=== PATIENT | female | born 1990 | race Two or more races ===

== ENCOUNTER → 2020-02-05 | Outpatient (CLI) | payer OTHER ==
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
== END ==
LOC: RAD 10:33
PROVIDERS: ATTEND Orthopaedic Surgery
DX: S52.571A Other intraarticular fracture of lower end of right radius, initial encounter for closed fracture (principal); X58.XXXA Exposure to other specified factors, initial encounter

== ENCOUNTER 2020-02-10 09:50 | Day surgery (SDC) | payer OTHER ==
[~2020-02-10 09:50] MED LIST: CEFAZOLIN 2 GM/D5W RTU 2 GM/50 ML RTUPB IV ONE; CEFAZOLIN 2 GM/D5W RTU 2 GM/50 ML RTUPB IV PRN
[2020-02-10 10:25] LABS: HEMOGLOBIN 13.3 g/dL (12.0-15.5); MEAN CORPUSCULAR HEMOGLOBIN 31.6 pg (27.0-33.4); MEAN CORPUSCULAR HGB CONC 35.1 g/dL (32.0-36.0); MEAN CORPUSCULAR VOLUME 90 fl (80-97); PLATELET COUNT 333 10^3/uL (150-450); RED BLOOD COUNT 4.22 10^6/uL (3.72-5.28); RED CELL DISTRIBUTION WIDTH 13.1 % (11.5-14.0); WHITE BLOOD COUNT 5.4 10^3/uL (4.0-10.5)
[2020-02-10] MEDS ORDERED: FENTANYL CITRATE INJ/PF 100 MCG/2 ML AMPUL ONE (10:58)
[2020-02-10] MEDS ORDERED: MIDAZOLAM 2 MG/2 ML INJ ONE (10:58)
[2020-02-10] MEDS ORDERED: ROPIVACAINE HCL 0.5% INJ/PF (5 MG/1 ML) 30 ML SDV ONE (10:59)
[2020-02-10] MEDS ORDERED: KETOROLAC TROMETHAMINE 60 MG/2 ML SDV ONE (11:43)
[2020-02-10] MEDS ORDERED: ONDANSETRON HCL INJ/PF 4 MG/2 ML SDV ONE (11:43)
[2020-02-10] MEDS ORDERED: PHENYLEPHRINE HCL INJ/PF 10 MG/1 ML SDV ONE (11:43)
[2020-02-10] MEDS ORDERED: DEXAMETHASONE SOD PHOSPHATE INJ 4 MG/1 ML VIAL ONE (11:43)
[2020-02-10] MEDS ORDERED: BUPIVACAINE HCL 0.5 % INJ/PF 30 ML SDV ONE (11:47)
[2020-02-10] MEDS ORDERED: HYDROMORPHONE HCL INJ/PF 2 MG/ML AMPULE ONE (12:15)
[2020-02-10] MEDS ORDERED: PROPOFOL INJ 200 MG/20 ML VIAL IV ONE ×2 (12:15→13:47)
[2020-02-10] MEDS ORDERED: DIPHENHYDRAMINE HCL 50 MG/ML VIAL IV PRN (12:25)
[2020-02-10] MEDS ORDERED: MEPERIDINE HCL/PF INJ 25 MG/1 ML DISP.SYRIN IV PRN (12:25)
[2020-02-10] MEDS ORDERED: PROMETHAZINE HCL INJ 25 MG/1 ML VIAL IV PRN ×2 (12:25)
[2020-02-10] MEDS ORDERED: MORPHINE SULFATE 10 MG/ML INJ IV PRN (14:58)
[2020-02-10] MEDS ORDERED: OXYCODONE-ACETAMINOPHEN 5-325 MG TABLET PO PRN (14:58)
[2020-02-10] MEDS ORDERED: ONDANSETRON HCL INJ/PF 4 MG/2 ML SDV IV PRN (14:58)
--- NOTE | 2020-02-10 14:59 | Discharge Summary ---
Discharge Summary (SDC) - Discharge Final Diagnosis: Right distal radius fracture Date of Surgery: 02/10/20 Discharge Date: 02/10/20 Condition: Good Treatment or Instructions: Schedule Follow Up w/ Dr. Pop Segura @ [facility] for Surgery to be seen in 10-14 days or as scheduled [place]: [place]: [place]: Ice and elevate Keep splint clean/dry/intact, do not remove. If your fingers become numb please unwrap the Ezequiel wrap but leave the splint in place, if the sensation does not return within 30 minutes please return to the emergency department. May begin finger range of motion attempting to make full fist. Please use ibuprofen (Motrin or Advil) 600-800 mg every 8 hours as needed for pain or fever DO NOT TAKE w/ TORADOL may use once TORADOL complete. You may also use acetaminophen (Tylenol) 1000 mg every 4-6 hours as needed for pain or fever. Please be aware that many medications contain acetaminophen, do not exceed a total of 1000 mg of acetaminophen every 6 hours. If ibuprofen and acetaminophen are not sufficient for your pain you may take the Percocet/[place]. Please be aware that the Percocet/[place] does contain Tylenol. Stool softener of choice when on pain medication. USE OF [id number] IBUPROFEN: Ibuprofen (Advil, Nuprin, Medipren, Motrin IB) is a medication for fever and pain control. In addition, it has anti- inflammatory effects which may be beneficial, especially in the treatment of injuries. It's best to take ibuprofen with food. Persons with ulcer disease or allergy to aspirin should notify their physician of this before taking ibuprofen. Ibuprofen can be given every four to six hours, for a total of four doses daily. Age Pain or fever dose Antiinflammatory dose 6-8 yr 200 mg (1 tab) 200 mg (1 tab) 9-11 yr 200 mg (1 tab) 200-400 mg (1-2 tab) 11-14 yr 200-400 mg (1-2 tab) 400 mg (2 tab) 15-adult 400 mg (2 tab) 600 mg (3 tab) ORAL NARCOTIC MEDICATION: You have been given a prescription for pain control. This medication is a narcotic. It's best taken with food, as nausea can result if taken on an empty stomach. Don't operate machinery or drive within six hours of taking this medication. Do not combine this medicine with alcohol, or with any medication which can cause sedation (such as cold tablets or sleeping pills) unless you get permission from the physician. Narcotics tend to cause constipation. If possible, drink plenty of fluids and eat a diet high in fiber and fruits. Please be aware that prescription narcotics also have the potential for abuse. People become addicted to these medications because of the general sense of wellbeing that they induce. This feeling along with a significant reduction in tension, anxiety, and aggression provides a stimulating seductive quality to these drugs. Once your pain is under control, we encourage you to discard your unused narcotics. Prescriptions: Oxycodone HCl/Acetaminophen [Percocet 5-325 mg Tablet] 1 tab PO Q6 PRN #25 tab PRN Reason: [facility]errals: [facility] [[facility]] - Discharge Diet: As Tolerated Respiratory Treatments at Home: Deep Breathing/Coughing, Incentive Spirometer Discharge Activity: No Lifting Over 10 Pounds, No Lifting/Push/Pulling Report the Following to Your Physician Immediately: Fever over 101 Degrees, Unusual Bleeding, Redness, Swelling, Warmth, Increased Soreness
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
--- NOTE | 2020-02-10 16:16 | RADIOLOGY REPORT (SQ) ---
EXAM DESCRIPTION: NO CHG FLUORO; WRIST RIGHT 2 VIEWS IMAGES COMPLETED DATE/TIME: 02/10/2020 3:52 pm REASON FOR STUDY: RIGHT WRIST ORIF S52.571A OTH INTARTIC FRACTURE OF LOWER END OF RIGHT RADIUS, COMPARISON: None. FLUOROSCOPY TIME: 2 minutes 36 seconds 4 images saved to PACS. TECHNIQUE: Intra-operative images acquired during surgical procedure to evaluate progress. NUMBER OF IMAGES: For LIMITATIONS: None. FINDINGS: Plate and screw fixation of distal radial fracture. Alignment is anatomic. IMPRESSION: IMAGE(S) OBTAINED DURING PROCEDURE. COMMENT: Quality ID 145: Final reports for procedures using fluoroscopy that document radiation exp osure indices, or exposure time and number of fluorographic images (if radiation exposure indices are not available) Please consult full operative report of the attending physician for description of the procedure. TECHNICAL DOCUMENTATION: JOB ID: [id number] 2010 [employer]- All Rights Reserved Reading location - IP/workstation name: [email or web address]
--- NOTE | 2020-02-10 16:16 | RADIOLOGY REPORT (SQ) ---
EXAM DESCRIPTION: NO CHG FLUORO; WRIST RIGHT 2 VIEWS IMAGES COMPLETED DATE/TIME: 02/10/2020 3:52 pm REASON FOR STUDY: RIGHT WRIST ORIF S52.571A OTH INTARTIC FRACTURE OF LOWER END OF RIGHT RADIUS, COMPARISON: None. FLUOROSCOPY TIME: 2 minutes 36 seconds 4 images saved to PACS. TECHNIQUE: Intra-operative images acquired during surgical procedure to evaluate progress. NUMBER OF IMAGES: For LIMITATIONS: None. FINDINGS: Plate and screw fixation of distal radial fracture. Alignment is anatomic. IMPRESSION: IMAGE(S) OBTAINED DURING PROCEDURE. COMMENT: Quality ID [id number]: Final reports for procedures using fluoroscopy that document radiation exp osure indices, or exposure time and number of fluorographic images (if radiation exposure indices are not available) Please consult full operative report of the attending physician for description of the procedure. TECHNICAL DOCUMENTATION: JOB ID: [id number] 2010 [employer]- All Rights Reserved Reading location - IP/workstation name: [email or web address]
[2020-02-10 17:11] VITALS: BP 100/66
== END 2020-02-10 16:55 | disposition home or self-care (01) ==
LOC: OROUT 09:50
PROVIDERS: ATTEND Orthopaedic Surgery
DX: S52.571A Other intraarticular fracture of lower end of right radius, initial encounter for closed fracture (principal); S62.342 Nondisplaced fracture of base of third metacarpal bone, right hand; Z03.818 Encounter for observation for suspected exposure to other biological agents ruled out; V89.2XXA Person injured in unspecified motor-vehicle accident, traffic, initial encounter
CPT/HCPCS: 25609; C1776; 01830; 36415; 64415; 76942; 81025; 85027; 87635; C9803; J0690; J1100; J1170; J1885; J2250; J2370; J2405; J2704; J2795; J3010; J3490

== ENCOUNTER 2020-02-11 05:02 | Emergency (ER) | payer OTHER ==
[2020-02-11 05:09] VITALS: BP 116/77
[2020-02-11] MEDS ORDERED: MORPHINE SULFATE 10 MG/ML INJ IM ONE (05:16)
--- NOTE | 2020-02-11 05:33 | ER Document Report ---
ED Hand/Wrist Injury - General Chief Complaint: Wrist Pain Stated Complaint: POST OP PAIN RIGHT ARM Time Seen by Provider: 02/11/20 05:16 Primary Care Provider: ADELITA,BRITTA [Primary Care Provider] - Follow up as needed Notes: CHIEF COMPLAINT: Uncontrolled pain postoperative HPI: 29-year-old female presenting for uncontrolled pain postoperative. Had repair of distal radial and ulnar fractures yesterday by Dr. Meneses. Was placed on oxycodone 1 pill every 6 hours for pain. Was also placed in a volar splint. Patient states the fingers seem more swollen today and she is having pain that is not being managed by the oxycodone. States she is taking 1 pill every 4 hours for the pain. Denies new numbness or tingling in the fingertips. ROS: See HPI - all other systems were reviewed and are otherwise negative Constitutional: no fever Integumentary: no rash Allergy: no hives Musculoskeletal: + extremity pain or swelling Neurological: no numbness/tingling MEDICATIONS: I agree with the patient medications as charted by the RN. ALLERGIES: I agree with the allergies as charted by the RN. PAST MEDICAL HISTORY/PAST SURGICAL HISTORY: Reviewed and agree as charted by RN. SOCIAL HISTORY: Reviewed and agree as charted by RN. FAMILY HISTORY: No significant familial comorbid conditions directly related to patient complaint EXAM: Reviewed vital signs as charted by RN. CONSTITUTIONAL: Alert and oriented and responds appropriately to questions. Well-appearing; well-nourished HEAD: Normocephalic; atraumatic EYES: Conjunctivae clear, sclerae non-icteric ENT: normal nose; no rhinorrhea; moist mucous membranes NECK: Supple without meningismus CARD: symmetric distal pulses RESP: Normal chest excursion without splinting or tachypnea ABD/GI: non-distended BACK: The back appears normal EXT: There is soft tissue swelling and bruising to the right wrist and fingers. Some edema is noted. Surgical incisions appear intact. No overlying erythema. Sensation is intact in the fingertips to touch with capillary refill less than 3 seconds. Compartments appear soft to palpation. SKIN: Normal color for age and race; warm; dry; good turgor; no acute lesions noted NEURO: what is that noise sensory function intact PSYCH: The patient's mood and manner are appropriate. Grooming and personal hygiene are appropriate. MDM: 29-year-old female with uncontrolled pain postoperatively after distal radial and ulnar repair by orthopedics yesterday. Patient was initially in a very tight volar splint. We will replace the splint a little more loosely give patient pain management here. She may take her Percocet 2 pills every 4 hours as needed she is to contact Dr. Meneses's office today regarding follow-up and reevaluation - Related Data Allergies/Adverse Reactions: No Known Allergies Allergy (Unverified 02/09/20 12:18) Past Medical History - Social History Smoking Status: Never Smoker Chew tobacco use (# tins/day): No Frequency of alcohol use: Occasional Drug Abuse: None Family History: Reviewed & Not Pertinent Patient has homicidal ideation: No - Past Medical History Cardiac Medical History: Denies: Hx Coronary Artery Disease, Hx Heart Attack, Hx Hypertension Pulmonary Medical History: Denies: Hx Asthma, Hx Bronchitis, Hx COPD, Hx Pneumonia Neurological Medical History: Denies: Hx Cerebrovascular Accident, Hx Seizures Musculoskeletal Medical History: Denies Hx Arthritis - Immunizations Hx Diphtheria, Pertussis, Tetanus Vaccination: Yes Physical Exam - Vital signs Vitals: Temp Pulse Resp BP Pulse Ox 98.0 F 72 18 116/77 97 02/11/20 05:08 02/11/20 05:08 02/11/20 05:08 02/11/20 05:08 02/11/20 05:08 Course - Re-evaluation Re-evalutation: 02/11/20 05:33 Given the intact pulses lack of numbness or tingling in the fingertips good capillary refill and soft compartments on palpation I have low suspicion for compartment syndrome at this time. - Vital Signs Vital signs: Temp Pulse Resp BP Pulse Ox 98.0 F 72 18 116/77 97 02/11/20 05:08 02/11/20 05:08 02/11/20 05:08 02/11/20 05:08 02/11/20 05:08 Procedures - Immobilization Right Wrist Time completed: 05:34 Pre-Proc Neuro Vasc Exam: Normal Immobilizer type: Volar splint Performed by: PCT Post-Proc Neuro Vasc Exam: Normal, Unchanged from pre-exam Alignment checked and good: Yes Discharge - Discharge Clinical Impression: Post-operative pain Condition: Stable Disposition: HOME, SELF-CARE Additional Instructions: Continue to ice the hand and wrist as much as possible, elevate above heart level to help with swelling. Take 2 Percocet every 4 hours as needed for pain. Return for uncontrolled pain. Make sure you call the orthopedic clinic today to discuss reevaluation and pain management Referrals: [facility] [[facility]] - Follow up as needed PHIL MENESES DO [ACTIVE STAFF] - Follow up as needed
== END 2020-02-11 06:04 | disposition home or self-care (01) ==
LOC: ER 05:02
DX: G89.18 Other acute postprocedural pain (principal); M25.539 Pain in unspecified wrist; M79.601 Pain in right arm
CPT/HCPCS: 29125; 99284; 96372; J2270